=== PATIENT | female | born 1955 | race Caucasian/White ===

== ENCOUNTER 2023-10-25 09:21 | Outpatient (CLI) | payer OTHER ==
[2023-10-25 10:35] LABS: #Basophils 0.1 10x3/uL (0.0-0.2); #Eosinphils 0.4 10x3/uL (0.0-0.5); #Monocytes 0.6 10x3/uL (0.0-1.1); %Basophils 0.8 % (0.0-2.0); %Eosinophils 4.7 % (0.0-6.0); %Lymphocytes 17.2 % (18.0-47.0); %Monocytes 6.5 % (0.0-10.0); %Neutrophils 70.4 % (40.0-75.0); Hematocrit 42.2 % (34.9-44.5); Hemoglobin 14.2 g/dL (12.0-15.5); Mean Corpuscular HGB CONC 33.6 g/dL (32.0-36.0); Mean Corpuscular Hemoglobin 30.5 pg (27.0-33.0); Mean Corpuscular Volume 90.8 fl (81.6-98.3); Mean Platelet Volume 10.8 fl (7.4-10.4); Platelet Count 198 10x3/uL (150-450); RBC Distribution Width 12.6 % (11.5-14.5); Red Blood Cell (RBC) Count 4.65 10x6/uL (3.90-5.03); White Blood Cell (WBC) Count 8.5 10x3/uL (3.5-10.5)
[2023-10-25 11:01] LABS: ALT (SGPT) 39 U/L (8-55); AST (SGOT) 21 U/L (5-34); Alkaline Phosphatase 99 U/L (40-110); Anion Gap 12 mmol/L (10-20); BUN (Urea Nitrogen) 21 mg/dL (9.8-20.1); Bilirubin, Total 0.4 mg/dL (0.2-1.2); Calc. Creatinine Clearance 0 mL/min (70-130); Calcium 9.1 mg/dL (7.8-10.44); Carbon Dioxide 23 mmol/L (23-31); Chloride 110 mmol/L (98-107); Estimated GFR 79; Globulin 2.3 g/dL (2.4-3.5); Glucose 142 mg/dL (80-115); Potassium 4.3 mmol/L (3.5-5.1); Protein, Total 6.3 g/dL (5.8-8.1); Sodium 141 mmol/L (136-145)
== END 2023-10-25 09:22 | disposition home or self-care (01) ==
LOC: LABBT 09:21
PROVIDERS: ATTEND Surgery
DX: Z01.818 Encounter for other preprocedural examination (principal); K43.2 Incisional hernia without obstruction or gangrene
CPT/HCPCS: 80053; 85025; 93005; 93010

== ENCOUNTER 2023-11-01 05:44 | Day surgery (SDC) | payer OTHER ==
[2023-10-25 10:01] VITALS: BMI 36.8
[2023-11-01] MEDS ORDERED: LevoFLOXacin D5W 500 mg (100 mL) BAG ONE (06:28)
[2023-11-01] MEDS ORDERED: fentaNYL PF 100 MCG/2 ML SYRINGE ONE ×2 (07:02→10:51)
[2023-11-01] MEDS ORDERED: Dexamethasone 4 mg/ml Vial ONE (07:02)
[2023-11-01] MEDS ORDERED: Lidocaine 1% PF 5 ML VIAL ONE (07:02)
[2023-11-01] MEDS ORDERED: Rocuronium Bromide 10 MG/ML (10ML VIAL) ONE (07:02)
[2023-11-01] MEDS ORDERED: Ondansetron PF 4 MG/2 ML Vial ONE ×2 (07:02→12:21)
[2023-11-01] MEDS ORDERED: PROPOFOL 40 ML ONE (07:02)
[2023-11-01] MEDS ORDERED: SUGAMMADEX SODIUM 200 MG/2 ML VIAL ONE (07:02)
[2023-11-01] MEDS ORDERED: Midazolam HCl 2 mg/2 ml Vial ONE (07:39)
[2023-11-01] MEDS ORDERED: EPINEPHrine 1 MG/ML VIAL ONE (07:48)
[2023-11-01] MEDS ORDERED: Bupivacaine 0.25% HCL 30 ML VIAL ONE (07:48)
[2023-11-01] MEDS ORDERED: ePHEDrine Sulfate 50 MG/10 ML VIAL ONE (08:13)
[2023-11-01] MEDS ORDERED: diphenhydrAMINE 50 MG/ML VIAL ONE (08:14)
[2023-11-01] MEDS ORDERED: PHENYLEPHRINE-NS 100 MCG/ML 10 ML SYRINGE ONE (08:14)
[2023-11-01] MEDS ORDERED: Glycopyrrolate 0.2 MG/ML 5 ML SYRINGE ONE (08:14)
[2023-11-01] MEDS ORDERED: fentaNYL 50 mcg/mL 1 mL Vial ONE ×2 (09:47→10:14)
[2023-11-01] MEDS ORDERED: HYDROmorphone 0.5 MG/0.5 ML SYRINGE ONE ×2 (09:59→10:34)
[2023-11-01] MEDS ORDERED: Ketorolac Tromethamine 30 MG (1 mL) VIAL ONE (10:14)
[2023-11-01] MEDS ORDERED: HYDROcodone/Acetaminophen 5/325 mg Tablet ONE (12:10)
[2023-11-01] MEDS ORDERED: Promethazine 25 MG TAB ONE (12:28)
== END 2023-11-01 13:20 | disposition home or self-care (01) ==
LOC: SDC 05:44
PROVIDERS: ATTEND Surgery
PROC: 0WQF4ZZ Repair Abdominal Wall, Percutaneous Endoscopic Approach (ICD-10-PCS; principal; 2023-11-01)
DX: K43.2 Incisional hernia without obstruction or gangrene (principal); K42.9 Umbilical hernia without obstruction or gangrene; M19.90 Unspecified osteoarthritis, unspecified site; J45.909 Unspecified asthma, uncomplicated; I10 Essential (primary) hypertension; E11.9 Type 2 diabetes mellitus without complications; Z90.710 Acquired absence of both cervix and uterus; Z79.82 Long term (current) use of aspirin; Z79.899 Other long term (current) drug therapy; Z79.84 Long term (current) use of oral hypoglycemic drugs; Z88.8 Allergy status to other drugs, medicaments and biological substances; Z88.1 Allergy status to other antibiotic agents; Z87.891 Personal history of nicotine dependence; Z98.890 Other specified postprocedural states
CPT/HCPCS: 49593; 82962; A4314; C1781; J0171; J3010; 36416; J0665; J1100; J1170; J1200; J1885; J1956; J2250; J2405; J2704; Q0169